=== PATIENT | male | born 1965 | race Asian ===

== ENCOUNTER 2019-07-05 21:44 | Emergency (ER) | payer OTHER ==
[2019-07-05 22:42] LABS: Absolute Lymphocytes (CBC) 1.3 K/uL (0.7-4.9); Basophils % 0.3 % (0-1.3); Lymphocytes % 17.8 % (15.3-44.8); MPV 8.3 fL (7.6-11.3); RBC Red Blood Cell Count 4.53 M/uL (4.33-5.43)
[2019-07-05] MEDS ORDERED: NA CHLORIDE 0.9% 1,000 ML ONE (22:47)
[2019-07-05] MEDS ORDERED: ONDANSETRON 4 MG/2 ML VIAL ONE (22:47)
[2019-07-05] MEDS ORDERED: MORPHINE 4 MG/ML SYR ONE (22:47)
[2019-07-05 23:02] LABS: Albumin 3.8 g/dL (3.4-5.0); Bilirubin Direct 0.1 mg/dL (0-0.2); Bilirubin Total 0.4 mg/dL (0.2-1.0); Potassium 4.1 mmol/L (3.5-5.1); Protein, Total 7.9 g/dL (6.4-8.2)
--- NOTE | 2019-07-06 00:36 | ER ---
Nurse's Notes [facility] Name: Bradford Arias Age: 54 yrs Sex: Male : 1965 Arrival Date: 07/05/2019 Time: 21:47 Bed 20 Private MD: Diagnosis: Cholelithiasis Presentation: 07/05 21:50 Presenting complaint: Patient states: Abd pain for the last three hours. Transition of la1 care: patient was not received from another setting of care. Onset of symptoms was July 05, 2019. Risk Assessment: Do you want to hurt yourself or someone else? Patient reports no desire to harm self or others. Initial Sepsis Screen: Does the patient meet any 2 criteria? No. Patient's initial sepsis screen is negative. Does the patient have a suspected source of infection? No. Patient's initial sepsis screen is negative. Care prior to arrival: None. 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 - Social history:: Smoking status: Patient/guardian denies using tobacco. - Ebola Screening: : No symptoms or risks identified at this time. Screenin:30 Abuse screen: Denies threats or abuse. Nutritional screening: No deficits noted. tr5 Tuberculosis screening: No symptoms or risk factors identified. Fall Risk None identified. Assessment: 22:30 General: Appears uncomfortable, Behavior is calm, cooperative, appropriate for age. tr5 Pain: Complains of pain in abdomen. Neuro: Level of Consciousness is awake, alert, obeys commands, Oriented to person, place, time, Pharmacists are equal bilaterally Moves all extremities. Cardiovascular: Capillary refill < 3 seconds Pulses are all present. Edema is absent. Respiratory: Airway is patent Respiratory effort is even, unlabored, Respiratory pattern is regular, symmetrical. GI: Abdomen is round Bowel sounds present X 4 quads. Abd is soft X 4 quads. : No signs and/or symptoms were reported regarding the genitourinary system. EENT: No signs and/or symptoms were reported regarding the EENT system. Derm: No signs and/or symptoms reported regarding the dermatologic system. Musculoskeletal: No signs and/or symptoms reported regarding the musculoskeletal system. 23:44 Reassessment: Patient appears in no apparent distress at this time. Patient and/or cc3 family updated on plan of care and expected duration. Pain level reassessed. Patient is alert, oriented x 3, equal unlabored respirations, skin warm/dry/pink. Received this male patient from TIFFANIE Arnold as a case of abdominal pain but currently denies pain. With IV cannula gauge 20 at the left ACV with ongoing fluid bolus of NS 1 liter infusing well; awaiting CT scan result as endorsed. Patient denies pain at this time. Patient states feeling better. Patient states symptoms have improved. General: Appears in no apparent distress. comfortable, Behavior is calm, cooperative, appropriate for age. Pain: Complains of pain in abdomen Pain currently is 2 out of 10 on a pain scale. Neuro: Level of Consciousness is awake, alert, obeys commands, Oriented to person, place, time, situation, Appropriate for age. Cardiovascular: Denies chest pain, Heart tones S1 S2 present Capillary refill < 3 seconds in bilateral fingers Patient's skin is warm and dry. Respiratory: Airway is patent Respiratory effort is even, unlabored, Respiratory pattern is regular, symmetrical, Breath sounds are clear bilaterally. GI: Abdomen is round non-distended, Bowel sounds present X 4 quads. Abd is soft X 4 quads. : No signs and/or symptoms were reported regarding the genitourinary system. EENT: No signs and/or symptoms were reported regarding the EENT system. Derm: Skin is intact, is healthy with good turgor, Skin is pink, warm \T\ dry. normal. Musculoskeletal: Circulation, motion, and sensation intact. Range of motion: intact in all extremities. 07/06 00:17 Reassessment: Patient appears in no apparent distress at this time. Patient and/or cc3 family updated on plan of care and expected duration. Pain level reassessed. Patient is alert, oriented x 3, equal unlabored respirations, skin warm/dry/pink. 00:45 Reassessment: Patient appears in no apparent distress at this time. Patient and/or cc3 family updated on plan of care and expected duration. Pain level reassessed. Patient is alert, oriented x 3, equal unlabored respirations, skin warm/dry/pink. PA Page discharged the patient home with prescriptions given. IV cannula removed and patient left ER vitally stable and ambulatory with his family. No valuables left in the patient's room. Patient denies pain at this time. Patient states feeling better. Patient states symptoms have improved. Vital Signs: 07/05 21:50 BP 150 / 96; Pulse 77; Resp 16; Temp 98.3; Pulse Ox 100% on R/A; Weight 90.72 kg; la1 Height 5 ft. 10 in. (177.80 cm); 23:00 BP 139 / 81; Pulse 63; Resp 15; Pulse Ox 100% on R/A; tr5 23:47 BP 149 / 68; Pulse 62; Resp 16 S; Pulse Ox 100% on R/A; Pain 2/10; cc3 07/06 00:16 BP 148 / 77; Pulse 65; Resp 16 S; Pulse Ox 99% on R/A; cc3 00:40 BP 140 / 73; Pulse 68; Resp 15 S; Pulse Ox 99% on R/A; Pain 0/10; cc3 07/05 21:50 Body Mass Index 28.70 (90.72 kg, 177.80 cm) la1 ED Course: 07/05 21:47 Patient arrived in ED. cl3 21:50 Triage completed. la1 21:51 Arm band placed on right wrist. la1 22:08 Sean Lovelace PA is PHCP. cp 22:08 Jose A Pineda MD is Attending Physician. cp 22:08 Inserted saline lock: 20 gauge in left antecubital area, using aseptic technique. Blood jb5 collected. 22:09 Clayton Duran, RN is Primary Nurse. tr5 22:30 Bed in low position. Call light in reach. Side rails up X 1. tr5 22:35 Radiology exam delayed due to lab results not completed at this time. (BUN/Creatinine). kw1 23:34 CT Abd/Pelvis - IV Contrast Only In Process Unspecified. EDMS 07/06 00:33 Denver Garcia MD is Referral Physician. cp 00:45 No provider procedures requiring assistance completed. IV discontinued, intact, cc3 bleeding controlled, No redness/swelling at site. Pressure dressing applied. Administered Medications: 07/05 22:55 Drug: Zofran 4 mg Route: IVP; Site: left antecubital; tr5 23:32 Follow up: Response: Marked relief of symptoms tr5 22:56 Drug: NS 0.9% 1000 ml Route: IV; Rate: 1 bolus; Site: left antecubital; tr5 23:32 Follow up: IV Status: Completed infusion; IV Intake: 1000ml tr5 22:56 Drug: morphine 4 mg {Note: RASS:0.} Route: IVP; Site: left antecubital; tr5 23:32 Follow up: Response: Pain is decreased; RASS: Alert and Calm (0) tr5 Intake: 23:32 IV: 1000ml; Total: 1000ml. tr5 Outcome: 07/06 00:34 Discharge ordered by MD. cp 00:45 Discharged to home ambulatory, with family. cc3 00:45 Condition: stable 00:45 Discharge instructions given to patient, family, Instructed on discharge instructions, follow up and referral plans. medication usage, Demonstrated understanding of instructions, follow-up care, medications, Prescriptions given X 2. 00:46 Patient left the ED. cc3 Signatures: Dispatcher [employer] EDMS Jaswant García, RN RN la1 Sean Lovelace PA PA Maribel Ramos jb5 Annabel Ochoa kw1 Della Gutierres cc3 Clayton Duran RN RN tr5 Khai Ellis cl3
--- NOTE | 2019-07-06 00:36 | EDPHYS ---
Physician Documentation [facility] Name: Bradford Arias Age: 54 yrs Sex: Male : 1965 Arrival Date: 07/05/2019 Time: 21:47 Bed 20 Private MD: ED Physician Jose A Pineda HPI: 07/05 22:34 This 54 yrs old Male presents to ER via Ambulatory with complaints of Abdominal cp Pain. 22:34 The patient presents with abdominal pain in the periumbilical area. Onset: The cp symptoms/episode began/occurred 3 hour(s) ago. The symptoms do not radiate. Associated signs and symptoms: Pertinent negatives: anorexia, chest pain, constipation, diarrhea, dysuria, fever, testicular pain, vomiting. Severity of pain: in the emergency department the pain is actually worse moderately. 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 - Social history:: Smoking status: Patient/guardian denies using tobacco. - Ebola Screening: : No symptoms or risks identified at this time. ROS: 22:35 Constitutional: Negative for body aches, chills, fever, poor PO intake. cp 22:35 Eyes: Negative for injury, pain, redness, and discharge. cp 22:35 ENT: Negative for drainage from ear(s), ear pain, sore throat, difficulty swallowing, difficulty handling secretions. 22:35 Cardiovascular: Negative for chest pain, edema, palpitations. 22:35 Respiratory: Negative for cough, shortness of breath, wheezing. 22:35 Abdomen/GI: Positive for abdominal pain, Negative for vomiting, diarrhea, constipation, anorexia, black/tarry stool, rectal bleeding. 22:35 Back: Negative for pain at rest, pain with movement, radiated pain. 22:35 : Negative for urinary symptoms, flank pain, testicular pain 22:35 Skin: Negative for rash. 22:35 Neuro: Negative for altered mental status, headache. 22:35 All other systems are negative. Exam: 22:42 Constitutional: The patient appears in no acute distress, alert, awake, cp non-diaphoretic, non-toxic, well developed, well nourished, in obvious pain, uncomfortable. 22:42 Head/Face: Normocephalic, atraumatic. cp 22:42 Eyes: Periorbital structures: appear normal, Conjunctiva: normal, no exudate, no injection, Sclera: no appreciated abnormality, Lids and lashes: appear normal, bilaterally. 22:42 ENT: External ear(s): are unremarkable, Nose: is normal, Mouth: is normal, Posterior pharynx: is normal, airway is patent, no erythema, no exudate. 22:42 Chest/axilla: Inspection: normal, Palpation: is normal, no crepitus, no tenderness. 22:42 Cardiovascular: Rate: normal, Rhythm: regular, Heart sounds: murmur, not appreciated, Edema: is not appreciated, JVD: is not appreciated. 22:42 Respiratory: the patient does not display signs of respiratory distress, Respirations: normal, no use of accessory muscles, no retractions, no splinting, no tachypnea, labored breathing, is not present, Breath sounds: are clear throughout, no decreased breath sounds, no stridor, no wheezing. 22:42 Abdomen/GI: Inspection: abdomen appears normal, Bowel sounds: active, all quadrants, Palpation: soft, in all quadrants, moderate abdominal tenderness, in the umbilical area, rebound tenderness, is not appreciated, voluntary guarding, is not appreciated. 22:42 Back: pain, is absent, ROM is normal. 22:42 Skin: no rash present. 22:42 Neuro: Orientation: to person, place \T\ time. Mentation: is normal, Motor: moves all fours, strength is normal. Vital Signs: 21:50 BP 150 / 96; Pulse 77; Resp 16; Temp 98.3; Pulse Ox 100% on R/A; Weight 90.72 kg; la1 Height 5 ft. 10 in. (177.80 cm); 23:00 BP 139 / 81; Pulse 63; Resp 15; Pulse Ox 100% on R/A; tr5 23:47 BP 149 / 68; Pulse 62; Resp 16 S; Pulse Ox 100% on R/A; Pain 2/10; cc3 11/04 00:16 BP 148 / 77; Pulse 65; Resp 16 S; Pulse Ox 99% on R/A; cc3 00:40 BP 140 / 73; Pulse 68; Resp 15 S; Pulse Ox 99% on R/A; Pain 0/10; cc3 07/05 21:50 Body Mass Index 28.70 (90.72 kg, 177.80 cm) la1 MDM: 07/05 22:16 Patient medically screened. cp 23:00 Differential diagnosis: appendicitis, cholecystitis, Cholelithiasis, diverticulitis, cp non-specific abd pain, pancreatitis, Pyelonephritis, Testicular Torsion, Ureterolithiasis, urinary tract infection. 07/06 00:33 Data reviewed: vital signs, nurses notes, lab test result(s), radiologic studies, CT cp scan, I have discussed the patient's presentation/case with the attending Emergency Department Physician; and as a result, I will discharge patient. 00:33 Counseling: I had a detailed discussion with the patient and/or guardian regarding: the cp historical points, exam findings, and any diagnostic results supporting the discharge/admit diagnosis, lab results, radiology results, the need for outpatient follow up, for definitive care, a general surgeon, to return to the emergency department if symptoms worsen or persist or if there are any questions or concerns that arise at home. Response to treatment: the patient's symptoms have markedly improved after treatment, VSS. Pain markedly improved. Discussed results of CT showing gallstone and recommendation for general surgery f/u. Patient reports at this time he does not want to have surgery and understands risk of worsening or continued pain, worsening symptoms, and as a result, I will discharge patient. Special discussion: Based on the patient's Hx, exam, and Dx evaluation, there is no indication for emergent surgery or inpatient Tx. It is understood by the patient/guardian that if the Sx's persist or worsen they need to return immediately for re-evaluation. 07/05 22:12 Order name: Basic Metabolic Panel; Complete Time: 23:20 mg2 07/05 23:20 Interpretation: Normal except: GLUC 131; BUN 22; GFR 74. cp 07/05 22:12 Order name: CBC with Diff; Complete Time: 23:20 mg2 07/05 22:12 Order name: Creatinine for Radiology; Complete Time: 23:20 mg2 07/05 22:12 Order name: Hepatic Function; Complete Time: 23:20 mg2 07/05 22:12 Order name: Lipase; Complete Time: 23:20 mg2 07/05 22:33 Order name: CT Abd/Pelvis - IV Contrast Only cp 07/05 22:12 Order name: IV Saline Lock; Complete Time: 22:12 mg2 07/05 22:12 Order name: Labs collected and sent; Complete Time: 22:12 mg2 07/06 00:08 Order name: PO challenge; Complete Time: 00:36 cp Administered Medications: 07/05 22:55 Drug: Zofran 4 mg Route: IVP; Site: left antecubital; tr5 23:32 Follow up: Response: Marked relief of symptoms tr5 22:56 Drug: NS 0.9% 1000 ml Route: IV; Rate: 1 bolus; Site: left antecubital; tr5 23:32 Follow up: IV Status: Completed infusion; IV Intake: 1000ml tr5 22:56 Drug: morphine 4 mg {Note: RASS:0.} Route: IVP; Site: left antecubital; tr5 23:32 Follow up: Response: Pain is decreased; RASS: Alert and Calm (0) tr5 Disposition: 07/06/19 00:34 Discharged to Home. Impression: Cholelithiasis. - Condition is Stable. - Discharge Instructions: Biliary Colic, Adult, Cholelithiasis. - Prescriptions for Bentyl 20 mg Oral Tablet - take 2 tablet by ORAL route every 6 hours As needed; 40 tablet. Zofran 4 mg Oral Tablet - take 1 tablet by ORAL route every 12 hours As needed; 20 tablet. - Medication Reconciliation Form, Thank You Letter, Antibiotic Education, Prescription Opioid Use form. - Follow up: Denver Garcia MD; When: 1 - 2 days; Reason: cholelithiasis. - Problem is new. - Symptoms have improved. Addendum: 07/07/2019 07:01 Co-signature as Attending Physician, Jose A Pineda MD I agree with the assessment and t w4 plan of care. Signatures: Dispatcher [employer] EDMS Jaswant García RN RN la1 Sean Lovelace PA PA Jose A Stewart MD MD tw4 Sourav Dejesus RN RN mg2 Della Gutierres cc3 Clayton Duran RN RN tr5 Corrections: (The following items were deleted from the chart) 07/06 00:46 00:34 07/06/2019 00:34 Discharged to Home. Impression: Cholelithiasis. Condition is cc3 Stable. Forms are Medication Reconciliation Form, Thank You Letter, Antibiotic Education, Prescription Opioid Use. Follow up: Dr. Denver Garcia; When: 1 - 2 days; Reason: cholelithiasis. Problem is new. Symptoms have improved. cp
[2019-07-06 00:53] VITALS: TEMP 98.3
[2019-07-06 00:57] VITALS: BP 148/77; O2SAT 99
--- NOTE | 2019-07-06 09:35 | RAD REPORT ---
EXAM DESCRIPTION: CT abdomen and pelvis with IV contrast CLINICAL HISTORY: 54-year-old male with abdominal pain for the past three hours TECHNIQUE: Axial CT imaging of the abdomen and pelvis was performed following the administration of intravenous contrast.. Sagittal and coronal reconstructed images were then performed. The CT stud y is performed according to ALARA (as low as reasonably achievable) or ALARA/IMAGE GENTLY, with autom atic adjustment of mA and/or kV according to patient size. Performed on: 07/05/2019 at 11:25 PM. Comparison: None FINDINGS: Lung bases: The lung bases are clear. There is mild right and minimal left basilar atelect asis and/or fibrosis. There is eventration of the right hemidiaphragm. Liver: The liver is normal in size and configuration. No focal hepatic abnormalities are identified. Liver attenuation is within normal limits. Spleen: The spleen is normal is size, configuration and attenuation. Gallbladder and bile duct: The gallbladder is well distended. There is a 0.8 x 0.5 cm gallstone in the neck of the gallbladder. There is no biliary ductal dilatation. The common bile duct measures bet ween 6 to 7 mm in diameter. Pancreas: The pancreas is grossly normal in size and configuration. Adrenal Glands: The adrenal glands are normal in size and configuration. Kidneys: The kidneys are normal in size and configuration. There is no evidence of hydronephrosis. Th ere is no evidence of nephrolithiasis. No definite solid or cystic renal mass lesions are identified. Stomach: The stomach is grossly normal. There is no definite hiatal hernia. Bowel: The bowel gas pattern is non specific and non obstructive. There is a diverticulum arising fro m the descending portion of the duodenum. Appendix: The appendix is normal. Free air: There is no evidence of free air. Free fluid: There is no evidence of free fluid. Vasculature: The aorta is normal in caliber and contour. There are mild atherosclerotic calcification s along the abdominal aorta. The inferior vena cava is grossly unremarkable. Lymphadenopathy: No pathologic lymphadenopathy is identified. Bladder: The bladder is well distended and smooth in contour. Reproductive: The prostate gland is grossly within normal limits. Bones: No acute osseous abnormalities are identified. Soft tissues: No focal soft tissue abnormalities are identified. There are surgical clips in the left inguinal region. IMPRESSION: 1. No evidence of acute intra-abdominal or intrapelvic pathology. 2. Cholelithiasis without evidence of biliary ductal dilatation. 3. 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 4. Eventration of the right hemidiaphragm. Electronically signed by: Ethel Simmons DO 07/05/2019 11:50 PM WASTEWATER MANAGER Due to temporary technical issues with the PACS/Fluency reporting system, reports are being signed by the in house radiologist as a courtesy to ensure prompt reporting. The interpreting radiologist is f ully responsible for the content of the report.
--- OUTSIDE RECORDS SUMMARY | 2019-07-12 20:28 | XMS REPORT ---
:1965 [facility] Address [address] [place] [address] Dr. Cartwright [address] [place] [id number] Care Team Providers Name Role Phone Unavailable Unavailable Unavailable Problems This patient has no known problems. Allergies, Adverse Reactions, Alerts This patient has no known allergies or adverse reactions. Medications This patient has no known medications.
== END 2019-07-06 00:46 | disposition home or self-care (01) ==
LOC: ER 21:44
DX: K80.20 Calculus of gallbladder without cholecystitis without obstruction (principal); I10 Essential (primary) hypertension; Z95.1 Presence of aortocoronary bypass graft
CPT/HCPCS: 96361; 85025; 80048; 36415; 80076; 83690; 74177; 96375; 96374; 99284; Q9967; J7030; J2405

== ENCOUNTER 2020-03-04 23:31 | Emergency (ER) | payer OTHER ==
--- OUTSIDE RECORDS SUMMARY | 2020-03-04 23:33 | XMS REPORT | Continuity of Care Document ---
:1965 Author Organization [facility] t Address [address] [place] [address] Dr. Cartwright [address] [place] [id number] Care Team Providers Name Role Phone Unavailable Unavailable Unavailable Problems This patient has no known problems. Allergies, Adverse Reactions, Alerts This patient has no known allergies or adverse reactions. Medications This patient has no known medications. Procedures This patient has no known procedures. Results This patient has no known results.
--- NOTE | 2020-03-05 00:11 | ER ---
Nurse's Notes [facility] Name: Bradford Arias Age: 55 yrs Sex: Male : 1965 Arrival Date: 03/04/2020 Time: 23:35 Bed Waiting Private MD: Diagnosis: Presentation: 03/04 23:56 Acuity: LOUIS 3 23:56 Chief complaint: Patient's son or daughter states: Bilateral lower abd pain, described sg as aching and cramping, also has said he felt nauseated. Coronavirus screen: Proceed with normal triage. Ebola Screen: Patient negative for fever greater than or equal to 101.5 degrees Fahrenheit, and additional compatible Ebola Virus Disease symptoms Patient denies exposure to infectious person. Patient denies travel to an Ebola-affected area in the 21 days before illness onset. No symptoms or risks identified at this time. Initial Sepsis Screen: Does the patient meet any 2 criteria? No. Patient's initial sepsis screen is negative. Does the patient have a suspected source of infection? No. Patient's initial sepsis screen is negative. Risk Assessment: Do you want to hurt yourself or someone else? Patient reports no desire to harm self or others. Onset of symptoms was March 05, 2020. Care prior to arrival: None. Transition of care: patient was not received from another setting of care. 23:56 Method Of Arrival: Ambulatory sg Triage Assessment: 23:56 General: Appears uncomfortable, ill, well developed, well nourished, Behavior is sg cooperative, fussy, restless. Pain: Complains of pain in right lower quadrant and left lower quadrant Quality of pain is described as aching, crampy. Neuro: Level of Consciousness is awake, alert, obeys commands, Oriented to person, place, time, Speech is normal, Facial symmetry appears normal. Cardiovascular: Patient's skin is warm and dry. Respiratory: Airway is patent Respiratory effort is even, unlabored, Respiratory pattern is regular, symmetrical. Derm: Skin is pink, warm \T\ dry. Musculoskeletal: Circulation, motion, and sensation intact. Range of motion: intact in all extremities. Historical: - Allergies: 03/05 06:32 No Known Allergies; sg - PMHx: 06:32 Hypertension; sg Vital Signs: 03/04 23:56 Pulse 86; Resp 18; Temp 97.7; Pulse Ox 100% on R/A; Pain 06/11; sg ED Course: 23:35 Patient arrived in ED. cf2 23:56 Triage completed. sg 23:56 Arm band placed on. sg Administered Medications: No medications were administered Outcome: 03/05 00:10 Patient left the ED. sg 00:10 Eloped from waiting room, post triage evaluation and consult. pt daughter reports she sg would like to take him someplace else so he will not have to wait for a room, he needs pain medication immediately 00:10 Condition: stable Signatures: Herson Ortiz, RN RN sg Francine Jenkins cf2
== END 2020-03-05 00:10 | disposition left against medical advice (07) ==
LOC: ER 23:31
DX: Z53.21 Procedure and treatment not carried out due to patient leaving prior to being seen by health care provider (principal)
CPT/HCPCS: 99281